=== PATIENT | female | born 1965 | race Caucasian/White ===

== ENCOUNTER 2019-11-26 12:49 | Emergency (ER) | payer MEDICAID ==
[~2019-11-26] VITALS: Ht 170.2 cm; Wt 110.0 kg
[2019-11-26 13:20] VITALS: BP 128/86
== END 2019-11-26 14:49 | disposition home or self-care (01) ==
LOC: ER 12:49
DX: Z20.828 Contact with and (suspected) exposure to other viral communicable diseases (principal); R50.9 Fever, unspecified; R05 Cough; M79.18 Myalgia, other site; R06.02 Shortness of breath; I10 Essential (primary) hypertension; E11.9 Type 2 diabetes mellitus without complications; E78.00 Pure hypercholesterolemia, unspecified
CPT/HCPCS: 71045; 93005; 99283; U0003-CS